=== PATIENT | male | born 1960 | race African-American/Black ===

== ENCOUNTER 2025-04-10 07:12 | Emergency (ER) | payer OTHER ==
[2025-04-10 08:27] LABS: #Basophils 0.03 10x3/uL (0.0-0.2); #Eosinophils 0.10 10x3/uL (0.0-0.5); #Monocytes 0.54 10x3/uL (0.0-1.1); #Neutrophils 3.90 10x3/uL (1.5-8.4); %Basophils 0.5 % (0.0-2.0); %Eosinophils 1.7 % (0.0-6.0); %Lymphocytes 24.0 % (18.0-47.0); %Monocytes 8.9 % (0.0-10.0); %Neutrophils 64.6 % (40.0-75.0); Hematocrit 41.3 % (38.8-50.0); Hemoglobin 14.4 g/dL (13.5-17.5); Mean Corpuscular Hemoglobin 32.1 pg (27.0-33.0); Mean Corpuscular Volume 92.0 fL (81.2-95.1); Platelet Count 283 10x3/uL (150-450); Red Blood Cell (RBC) Count 4.49 10x6/uL (4.32-5.72); White Blood Cell (WBC) Count 6.04 10x3/uL (3.5-10.5)
[2025-04-10 08:41] LABS: ALT (SGPT) 16 U/L (Less than 45); AST (SGOT) 22 U/L (11-34); Albumin 4.0 g/dL (3.1-4.5); Alkaline Phosphatase 92 U/L (40-110); Anion Gap 12 mmol/L (10-20); BUN (Urea Nitrogen) 9 mg/dL (8.4-25.7); Bilirubin, Total 0.9 mg/dL (0.3-1.2); Calc. Creatinine Clearance 0 mL/min (70-130); Calcium 9.4 mg/dL (7.8-10.44); Carbon Dioxide 22 mmol/L (23-31); Chloride 111 mmol/L (98-107); Globulin 3.5 g/dL (2.4-3.5); Glucose 80 mg/dL (80-115); Potassium 3.8 mmol/L (3.5-5.1); Sodium 141 mmol/L (136-145)
[2025-04-10 08:47] LABS: Troponin I Less than 0.010 ng/mL (< 0.028)
== END 2025-04-10 10:30 | disposition home or self-care (01) ==
LOC: EEVIPCON 07:12 → CSHERS 07:12
DX: T18.9XXA Foreign body of alimentary tract, part unspecified, initial encounter (principal); R45.851 Suicidal ideations; I10 Essential (primary) hypertension
CPT/HCPCS: 36415; 71045; 74019; 80053; 84484; 85025; 93005